=== PATIENT | female | born 1990 | race Caucasian/White ===

== ENCOUNTER 2016-07-02 13:12 | Day surgery (SDC) | payer OTHER ==
--- NOTE | ~2016-07-02 | OP ---
Record Of Operation [facility] [address] [place]. [address] NAME: GEMA GARCIA : 89 STATUS : PRE SD PAT#: [id number] AGE: 26 ADM/REG DATE : MR#: [id number] REPORT SERV DATE: 07/02/16 DICTATED BY: GEORGI HAUSER DATE: 07/02/16 REPORT STATUS : Draft TRANSCRIBED BY: MELVA DATE: 07/02/16 DATE OF PROCEDURE: PREOPERATIVE DIAGNOSIS: Obesity. POSTOPERATIVE DIAGNOSIS: Obesity. PROCEDURE: Placement of a ReShape intragastric balloon. SURGEON: Georgi Hauser M.D. ANESTHESIA: MAC. COMPLICATIONS: None. INDICATION FOR THE PROCEDURE: This is a 26-year-old white female with obesity with a BMI of 40 and a weight 240 pounds and associated arthropathy. DESCRIPTION OF PROCEDURE: The patient was taken to the endoscopy room and after adequate IV sedation under MAC, the scope was introduced to the mouth all the way down to the esophagus and the stomach, did not see any significant hiatal hernia. Did not see any evidence of ulcerations. We put the scope through the first portion of the duodenum and then slided the wire through the scope all the way down to the 1st and 2nd portion of the duodenum, pulled out the scope and then through the wire, we slided the balloons with an introducer all the way down to the stomach and then we put the scope and verified that the balloons were in the stomach, then removed the wire and then started inflating first the proximal and then the distal balloon. We decided to put 400 mL on each balloon of saline with methylene blue. Both balloons were inflated under direct visualization. Then each balloon was sealed with mineral oil. Then we backed up the scope and then removed the introducer from the balloons and then rescoped the patient, verified both balloons were inflated, they were in the stomach. There was no evidence of any other injury or abnormality. The patient tolerated the procedure well without any problems. NEGRA Georgi Parrish M.D. / [id number] CC: Georgi Hauser M.D.
[2016-11-25] MEDS ORDERED: PRILO PO (09:30)
== END 2016-07-02 23:59 | disposition home or self-care (01) ==
LOC: MSC 13:12
PROVIDERS: Surgery
PROC: 0DV68DZ Restriction of Stomach with Intraluminal Device, Via Natural or Artificial Opening Endoscopic (ICD-10-PCS; principal; 2016-07-02 13:00)
DX: E66.01 Morbid (severe) obesity due to excess calories (principal); D64.9 Anemia, unspecified; Z68.41 Body mass index [BMI] 40.0-44.9, adult; Z98.890 Other specified postprocedural states
CPT/HCPCS: 84703; A9270-GY; J2405